=== PATIENT | female | born 1940 | race Caucasian/White ===

== ENCOUNTER → 2021-01-01 13:32 | Outpatient (BNVA) | payer MEDICARE, MEDICAID, SELFPAY | PROVIDERS: Family Provider Family Medicine; Visit Provider Nurse Practitioner Family | DX: I10 Essential (primary) hypertension (principal); F41.9 Anxiety disorder, unspecified; K21.9 Gastro-esophageal reflux disease without esophagitis; Z76.89 Persons encountering health services in other specified circumstances | CPT/HCPCS: 80053; 80061; 84443; 85025 ==

== ENCOUNTER 2021-07-25 19:50 | Emergency (ER) | payer OTHER, MEDICARE, MEDICAID, SELFPAY ==
[2021-07-25 19:57] VITALS: BP 207/87; PULSE 75; RESP 16; TEMP 36.6; O2SAT 94; BMI 24.0
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
[2021-07-25] MEDS: enalaprilat 1.25 mg/mL Inj IVP (20:18)
[2021-07-25] MEDS: LORazepam 2 mg/mL INJ 1 mL 0.5 MG IVP (20:20)
[2021-07-25 20:31] VITALS: BP 168/90
[2021-07-25] MEDS: tetanus-diphtheria tox (adult) 0.5 mL SDV IM (20:41)
[2021-07-25 20:50] VITALS: BP 169/72; PULSE 69; RESP 16; O2SAT 95
--- NOTE | 2021-07-25 20:51 | PC.NURSE ---
wound to left forearm cleansed with normal saline, 4x4s used to dry area. steri strips used to close wound and edges approximated well. mild oozing noted at sites.
[2021-07-25 22:12] VITALS: BP 138/76; PULSE 68; RESP 16; O2SAT 98
== END 2021-07-25 22:25 | disposition home or self-care (01) ==
PROVIDERS: Emergency Provider Emergency Medicine
DX: S50.11XA Contusion of right forearm, initial encounter (principal); S50.811A Abrasion of right forearm, initial encounter; S30.811A Abrasion of abdominal wall, initial encounter; I10 Essential (primary) hypertension; V89.2XXA Person injured in unspecified motor-vehicle accident, traffic, initial encounter; Z23 Encounter for immunization
CPT/HCPCS: 70450; 72125; 73090; 90471; 90714; 96374; 96375; 99284; J2060; J3490

== ENCOUNTER → 2021-09-03 09:30 | Outpatient (BNVA) | payer MEDICARE, MEDICAID, SELFPAY | PROVIDERS: PCP Nurse Practitioner Family; Visit Provider Nurse Practitioner Family | DX: I10 Essential (primary) hypertension (principal) | CPT/HCPCS: 80053; 80061; 84443; 85025 ==

== ENCOUNTER → 2021-12-07 11:39 | Outpatient (BNVA) | payer MEDICARE, MEDICAID, SELFPAY | PROVIDERS: PCP Nurse Practitioner Family; Visit Provider Nurse Practitioner Family | DX: R50.9 Fever, unspecified (principal); R05.9 Cough, unspecified; Z20.822 Contact with and (suspected) exposure to COVID-19 | CPT/HCPCS: 71046; 80053; 85025; 85379; 86140; 87635 ==

== ENCOUNTER → 2021-12-14 11:13 | Outpatient (BNVA) | payer MEDICARE, MEDICAID, SELFPAY | PROVIDERS: PCP Nurse Practitioner Family; Visit Provider Nurse Practitioner Family | DX: R79.82 Elevated C-reactive protein (CRP) (principal); R71.8 Other abnormality of red blood cells; E87.6 Hypokalemia; R79.89 Other specified abnormal findings of blood chemistry; J18.9 Pneumonia, unspecified organism | CPT/HCPCS: 80053; 82607; 85379; 86140 ==

== ENCOUNTER 2021-12-24 12:31 | Outpatient (CLI) | payer MEDICARE, MEDICAID, SELFPAY ==
--- NOTE | 2021-12-24 12:54 | CT_ITS ---
WS: [id number] CTA OF THE CHEST WITH PULMONARY EMBOLISM PROTOCOL TECHNIQUE: High-resolution contrast enhanced CTA of the chest with coronal and sagittal reformatted i mages with pulmonary embolism protocol. MIP images are also reviewed. CLINICAL INFORMATION: J18.9 - Pneumonia, unspecified organism /?PE COMPARISON: None. DLP: 485.[address] scans at [facility] use at least one of these dose optimization techniques: automated e xposure control; mA and/or kV adjustment per patient size (includes targeted exams where dose is matc hed to clinical indication); or iterative reconstruction. FINDINGS: Aneurysmal ascending thoracic aorta measuring 5.9 cm increased from 2018 where it measured approximat antwan 4.9 cm. Proximal main pulmonary arteries are normal. Normal segmental and subsegmental pulmonary arteries. No evidence of pulmonary embolus. No mediastinal or hilar lymphadenopathy. No axillary lymphadenopathy. Moderate chronic emphysematous changes. Bibasilar atelectasis. Slight hazy atelectasis in the lung bases. Fibrotic appearing opacity in the lingula. Cardiomegaly. Ectatic aortic arch. Normal caliber descending thoracic aorta. Partially visualized RIGHT renal peripelvic cyst similar to the prior examinations. Adrenal glands ar e normal. Fatty atrophy of the pancreas. Small esophageal hiatal hernia. Mild hepatomegaly. Cholelith iasis. CT/CT angio chest PE protcl [id number] IMPRESSION: 1. Proximal main pulmonary arteries are normal. No evidence of pulmonary embol us. 2. Ectatic ascending thoracic aorta measuring 5.9 cm compared to 4.9 cm previo us. 3. Moderate chronic emphysematous changes. Bibasilar atelectasis. Fibrotic corona earing opacity in the lingula. 4. No pleural fluid. 5. No mediastinal or hilar lymphadenopathy. 6. Cholelithiasis. 7. Small esophageal hiatal hernia.
== END 2021-12-24 12:32 | disposition home or self-care (01) ==
LOC: RAD 12:35
PROVIDERS: PCP Nurse Practitioner Family; Visit Provider Nurse Practitioner Family
DX: J18.9 Pneumonia, unspecified organism (principal); R05.9 Cough, unspecified; R79.89 Other specified abnormal findings of blood chemistry; K44.9 Diaphragmatic hernia without obstruction or gangrene; K80.20 Calculus of gallbladder without cholecystitis without obstruction; I77.810 Thoracic aortic ectasia
CPT/HCPCS: 71275; Q9967

== ENCOUNTER → 2022-01-07 10:15 | Outpatient (BNVA) | payer MEDICARE, MEDICAID, SELFPAY | PROVIDERS: PCP Nurse Practitioner Family; Visit Provider Thoracic Surgery (Cardiothoracic Vascular Surgery) | DX: I71.2 Thoracic aortic aneurysm, without rupture (principal) ==

== ENCOUNTER → 2022-06-17 15:11 | Outpatient (BNVA) | payer MEDICARE, MEDICAID, SELFPAY | PROVIDERS: PCP Nurse Practitioner Family; Visit Provider Nurse Practitioner Family | DX: R19.7 Diarrhea, unspecified (principal); I10 Essential (primary) hypertension | CPT/HCPCS: 80053; 80061; 84443; 85025 ==

== ENCOUNTER → 2022-06-28 11:31 | Outpatient (BNVA) | payer MEDICARE, MEDICAID, SELFPAY | PROVIDERS: PCP Nurse Practitioner Family; Visit Provider Nurse Practitioner Family | DX: R19.7 Diarrhea, unspecified (principal) | CPT/HCPCS: 87177; 87209; 87506 ==

== ENCOUNTER 2022-06-29 03:35 | Emergency (ER) | payer MEDICARE, MEDICAID, SELFPAY ==
[2022-06-29 03:39] VITALS: BMI 24.0
[2022-06-29 03:42] VITALS: BP 111/57; PULSE 76; RESP 16; TEMP 36.9; O2SAT 95
--- NOTE | 2022-06-29 04:02 | XRR_ITS ---
PROCEDURE INFORMATION: Exam: XR Chest Exam date and time: 06/29/2022 4:08 AM Age: 81 years old Clinical indication: Cough TECHNIQUE: Imaging protocol: Radiologic exam of the chest. Views: 1 view. COMPARISON: CR XR chest 2V* [id number] 12/07/2021 11:38 AM FINDINGS: Lungs: Emphysematous change, interstitial prominence, and chronic granulomatous disease. Pleural spaces: No significant pleural effusion. Heart/Mediastinum: Epicardial fat accentuates the cardiac silhouette. Vasculature: Ectasia of the thoracic aorta. Bones/joints: Osteopenia and degenerative change. XR/XR chest 1V portable [id number] IMPRESSION: Emphysematous change, interstitial prominence, and chronic granulomatous disease.
--- NOTE | 2022-06-29 04:04 | W.ED.GENADLT ---
HPI - General Adult General: Chief complaint: General Medical Stated complaint: Fever\Conjested\Headache\Joint pain Time Seen by Provider: 06/29/22 04:01 Source: patient Mode of arrival: ambulatory Limitations: no limitations History of Present Illness: [id number] female states over the last 2 days she has had headache joint pain muscle aches along with nasal congestion she states that she has been around her daughter and her daughter just tested positive for COVID yesterday she is pretty sure she has COVID as well she is in no distress here denies any breath has had a mild cough denies any vomiting or diarrhea currently Associated symptoms: Reports malaise; Deny chest pain, dyspnea, headache(s), nausea, rash or vomiting Review of Systems Const: Reports: chills, body aches, fatigue and malaise Eyes: Denies: blurry vision or eye discomfort ENMT: Reports: nasal congestion Card: Denies: chest pain Resp: Denies: dyspnea GI: Denies: abdominal pain, nausea, vomiting or diarrhea : Denies: dysuria Musc: Denies: neck pain or back pain Skin/Breast: Denies: rash Neuro: Denies: headache(s) Psych: Denies: depression Lele/Lymph: Denies: easy bruising All/Imm: Denies: urticaria PFSH ED PFSH: Medical History Essential hypertension GERD (gastroesophageal reflux disease) Surgical History Hx of hysterectomy 1969 Social History Smoking and tobacco status: never smoked Second hand smoke exposure: No Smoking risk assessment/counseling performed?: No Alcohol intake: never Desire information about alcohol rehabilitation?: No Counseling given: No Desire information about substance/drug rehabilitation?: No Counseling given: No Adopted: No Caregiver/support person: No Lives independently: Yes Household members: children Housing: House Marital status: / Number of children: 3 service: No Current occupational status: retired History of recent travel: No Physical Exam Const: COMMON NORMALS: no acute distress, patient oriented x3 and healthy appearing HENMT: COMMON NORMALS: normocephalic and atraumatic HEAD & SCALP: normocephalic and atraumatic Eye: COMMON NORMALS: Equal, round and reactive pupils present and EOMs intact bilaterally PUPIL: Yes Equal, round and reactive pupils present Neck/C-Spine: COMMON NORMALS: full ROM and supple Chest: COMMONS NORMALS: normal inspection of the chest and normal palpation of entire chest wall Resp: COMMON NORMALS: normal respiratory effort, No retractions, No use of accessory muscles and clear to auscultation bilaterally AUSCULTATION: clear to auscultation bilaterally Cardio: COMMON NORMALS: regular rate, regular rhythm and No murmurs present (Cardio) RATE: regular rate RHYTHM: regular rhythm GI: COMMON NORMALS: Normal to inspection, nondistended, normoactive bowel sounds present, Soft to palpation, non-tender and no masses PALPATION: Yes Soft to palpation Extremity: COMMON NORMALS: normal to inspection and full ROM Neuro: COMMON NORMALS: patient oriented x3, moves all extremities and no focal motor deficits Psych: COMMON NORMALS: mental status grossly normal, Normal thought process present and cooperative THOUGHT PROCESS: Normal thought process present Skin: COMMON NORMALS: no rashes or lesions noted and no wounds GENERAL SKIN EXAM: no rashes or lesions noted Course Vital Signs: Vital signs: Vital Signs Temperature 98.5 F 06/29/22 03:42 Pulse Rate 76 06/29/22 03:42 Respiratory Rate 16 06/29/22 03:42 Blood Pressure 111/57 06/29/22 03:42 Pulse Oximetry 95 06/29/22 03:42 Oxygen Delivery Me thod 06/29/22 03:42 MDM - General Adult Medical Decision Making Patient presents here with COVID she is well-appearing here in no distress she is stable for discharge she is to follow-up with her PCP and return if worsening she understands agrees to plan. Lab Data Laboratory Results SARS-CoV-2 Ag (Rapid) Positive (Negative) H 06/29/22 03:53 Discharge Plan Discharge Patient Disposition: Home Clinical Impression: COVID-19 Condition: Stable Prescriptions: No Action cholestyramine (with sugar) [Questran] 4 gram powder 4 g PO BID Qty: 378 0RF Rx Instructions: administer w/meal; avoid other meds within 1hr before or 4-6hr after dose omeprazole 20 mg capsule,delayed release(DR/EC) 20 mg PO DAILY 90 Days Qty: 90 1RF metoprolol succinate 25 mg tablet extended release 24 hr 25 mg PO DAILY 90 Days Qty: 90 1RF losartan 25 mg tablet 25 mg PO DAILY 90 Days Qty: 90 1RF citalopram 40 mg tablet 40 mg PO DAILY 90 Days Qty: 90 1RF amlodipine 10 mg tablet 10 mg PO DAILY 90 Days Qty: 90 1RF (DME) compressor, for nebulizer Device See Rx Instructions .Route Qty: 1 0RF Rx Instructions: As directed (DME) nebulizer accessories Kit See Rx Instructions .Route Qty: 1 0RF Rx Instructions: As directed albuterol sulfate 2.5 mg /3 mL (0.083 %) solution for nebulization 2.5 mg inhalation QID PRN (Reason: shortness of breath or wheezing) Qty: 75 0RF mirtazapine 30 mg tablet 30 mg PO DAILY Qty: 90 1RF dexamethasone 6 mg tablet 6 mg PO DAILY Qty: 7 0RF Discharge Orders: Discharge ED (Routine); Ordered 06/29/22 Ordered By: Lolita Altman Referrals: Ines Cotton FNP-C [Primary Care Provider] - 1-3 days Discharge Diet: Advance as tolerated Discharge Activity: Resume usual activity Patient Instructions: COVID-19 (Coronavirus Disease 2019) (ED) Coding Level of Care Code ED Commissions Analyst for [facility] Exam Comprehensive
[2022-06-29] MEDS: ketorolac 30 mg/mL INJ 15 MG IVP (04:21)
[2022-06-29] MEDS: dexamethasone 10 mg/mL INJ 6 MG IVP (04:21)
[2022-06-29] MEDS: sodium chloride 0.9% 500 ML 999 ML IV (04:21)
[2022-06-29 04:51] LABS: SARS Covid-2 Antigen Positive (Negative)
[2022-06-29 05:20] VITALS: BP 114/71; PULSE 77; RESP 18; TEMP 37.1; O2SAT 98
== END 2022-06-29 05:22 | disposition home or self-care (01) ==
PROVIDERS: Emergency Provider Emergency Medicine; PCP Nurse Practitioner Family
DX: U07.1 COVID-19 (principal); I10 Essential (primary) hypertension
CPT/HCPCS: 71045; 87426; 96361; 96374; 96375; 99284; J1100; J1885; J7040

== ENCOUNTER 2022-11-29 13:04 | Outpatient (CLI) | payer MEDICARE, MEDICAID, SELFPAY ==
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
== END 2022-11-29 13:05 | disposition home or self-care (01) ==
LOC: RAD 13:04
PROVIDERS: PCP Family Medicine; Visit Provider Family Medicine
DX: Z78.0 Asymptomatic menopausal state (principal); M85.80 Other specified disorders of bone density and structure, unspecified site
CPT/HCPCS: 77080

== ENCOUNTER 2022-12-07 20:22 | Emergency (ER) | payer MEDICARE, MEDICAID, SELFPAY ==
[2022-12-07 20:24] VITALS: BP 90/68; PULSE 66; RESP 16; TEMP 36.4; O2SAT 98; BMI 24.0
[2022-12-07 20:42] VITALS: BP 61/39; PULSE 71; RESP 22; O2SAT 100
[2022-12-07] MEDS: sodium chloride 0.9% 1,000 ML 999 ML IV ×2 (21:10→23:05)
--- NOTE | 2022-12-07 21:32 | W.ED.NAVMDI ---
Documented by User: Sonia Menjivar MD 12/07/22 21:35 HPI - Nausea/Vomiting/Diarrhea General: Chief complaint: Nausea/Vomiting/Diarrhea Stated complaint: N/V, headache Time Seen by Provider: 12/07/22 20:29 History of Present Illness: This 82-year-old lady presents to the ER with nausea, vomiting and diarrhea that started earlier today. She also complains of runny nose and pain on the left side of the face which she believes is due to her sinuses. Both started today. She has vomited 4 times and had 3 bowel movements so far. The bowel movements are watery and contains no blood. Vomitus also does not contain blood. Patient denies fever, chest pain or shortness of breath. She has no abdominal pain. She denies any sick contacts. Associated nausea: Yes Associated symtoms: Reports nausea Review of Systems General: Reports: 10 or more systems reviewed and unremarkable except in HPI and below ENMT: Reports: other (Nasal congestion and runny nose) GI: Reports: nausea, vomiting and diarrhea PFSH ED PFSH: Medical History Essential hypertension GERD (gastroesophageal reflux disease) Surgical History Hx of hysterectomy 1970 Social History Smoking and tobacco status: never smoked Second hand smoke exposure: No Smoking risk assessment/counseling performed?: No Alcohol intake: never Desire information about alcohol rehabilitation?: No Counseling given: No Desire information about substance/drug rehabilitation?: No Counseling given: No Adopted: No Caregiver/support person: No Lives independently: Yes Household members: children Housing: House Marital status: / Number of children: 3 service: No Current occupational status: retired Physical Exam Const: COMMON NORMALS: no acute distress, patient oriented x3, no limitations and alert HENMT: COMMON NORMALS: normocephalic HEAD & SCALP: normocephalic Chest: COMMONS NORMALS: normal inspection of the chest Resp: COMMON NORMALS: normal respiratory effort, No retractions, No use of accessory muscles and clear to auscultation bilaterally AUSCULTATION: clear to auscultation bilaterally Cardio: COMMON NORMALS: regular rate, regular rhythm and No murmurs present (Cardio) RATE: regular rate RHYTHM: regular rhythm GI: COMMON NORMALS: Normal to inspection, nondistended, normoactive bowel sounds present and non-tender OTHER: Soft abdomen, not distended, normal bowel sounds. No tenderness. : COMMON NORMALS: Yes no CVA tenderness BLADDER/KIDNEY EXAM: Yes no CVA tenderness Back/Pelvis: COMMON NORMALS: no CVA tenderness and no thoracic nor lumbar tenderness Extremity: GENERAL: Yes normal exam except as noted Neuro: COMMON NORMALS: patient oriented x3 and no focal motor deficits SENSORIUM/ORIENTATION: Yes alert Course Vital Signs: Vital signs: Vital Signs Temperature 97.6 F 12/07/22 20:24 Pulse Rate 89 12/08/22 00:15 Respiratory Rate 21 H 12/08/22 00:15 Blood Pressure 154/91 12/08/22 00:15 Pulse Oximetry 92 12/08/22 00:15 Oxygen Delivery Me thod 12/07/22 20:24 Oxygen Flow Rate 2 12/07/22 20:24 MDM - Nausea/Vomiting/Diarrhea Lab Data 12/07/22 21:20 12/07/22 21:20 Radiology Impressions Chest X-Ray 12/07/22 22:30 IMPRESSION: No acute findings. Abdomen/Pelvis CT 12/07/22 22:48 IMPRESSION: 1. Multiple prominent fluid-filled loops of small bowel may reflect an enteritis in the appropriate clinical setting, negative for bowel dilation. 2. Pericardial effusion incompletely image measuring up to 14.4 mm in thickness, CT chest could further evaluate this. 3. Bibasilar atelectasis versus infiltrate. 4. Mild periportal edema likely related hydration status. 5. Cholelithiasis with gallbladder distension, ultrasound could further evaluate this. 6. Left adnexal 2.8 cm simple cyst. 7. Small amount air in the urinary bladder may be iatrogenic. 8. Emphysematous changes. 9. Left hepatic lobe cyst. 10. Bilateral renal cysts, negative for follow up. 11. Right inguinal fat containing hernia without bowel or inflammation. 12. Several prominent upper abdominal lymph nodes in the region of the celiac artery axis measuring 10 mm, nonspecific. COMMENTS: Consistent with the [employer]'s Incidental Findings Committee white paper (J Am Shiva Radiol 2018): Any incidental renal lesion less than 1 cm or classified as too small to characterize, or any incidental cystic renal lesion characterized as simple-appearing, is likely benign. No follow-up imaging is recommended for these lesions per consensus recommendations based on imaging criteria. Laboratory Results WBC 16.9 10^3/uL (4.0-10.0) H 12/07/22 21:20 RBC 3.99 10^6/uL (4.1-5.3) L 12/07/22 21:20 Hgb 12.2 g/dL (11.5-15.3) 12/07/22 21:20 Hct 40.5 % (37.0-47.0) 12/07/22 21: MCV 101.5 fl (81-99) H 12/07/22 21: MCH 30.6 pg (28.0-34.0) 12/07/22 21: MCHC 30.1 g/dL (30.0-36.0) 12/07/22 21: RDW 12.9 % (12.1-15.1) 12/07/22: Plt Count 192 10^3/cmm (130-400) 12/07/22 21:20 MPV 9.7 fL (7.4-10.4) 12/07/22 21: Neut % (Auto) 74.4 % 12/07/22 21: Lymph % (Auto) 15.0 % 12/07/22 21:20 Bennett % (Auto) 9.1 % 12/07/22 21:20 Eos % (Auto) 0.2 % 12/07/22: Baso % (Auto) 0.5 % 12/07/22: Neut # (Auto) 12.59 10^3/uL (1.8-7.7) H 12/07/22 21:20 Lymph # (Auto) 2.5 10^3/uL (0.8-4.8) 12/07/22 21:20 Bennett # (Auto) 1.5 10^3/uL (0.2-0.9) H 12/07/22 21:20 Eos # (Auto) 0.0 10^3/uL (0.0-0.8) 12/07/22 21: Baso # (Auto) 0.1 10^3/uL (0.0-0.1) 12/07/22 21:20 Nucleated RBC % (auto) 0 % 12/07/22 21:20 Nucleated RBCs # 0.0 /100WBC 12/07/22 21:20 Sodium 136 mmol/L (136-145) 12/07/22 21:20 Potassium 4.6 mmol/L (3.5-5.1) 12/07/22 21:20 Chloride 99 mmol/L (98-107) 12/07/22 21:20 Carbon Dioxide 21 mmol/L (22-29) L 12/07/22 21:20 Anion Gap 20.6 (5-19) H 12/07/22 21:20 BUN 17 mg/dL (8-23) 12/07/22 21:20 Creatinine 1.5 mg/dL (0.5-0.9) H 12/07/22 21:20 GFR Calculation Not Reportable 12/07/22 21:20 Glucose 215 mg/dL (65-115) H 12/07/22 21:20 Calculated Osmolality 290 mOsm/kg (285-295) 12/07/22 21:20 Lactic Acid 5.2 mmol/L (0.5-2.2) H* 12/07/22 21:20 Calcium 8.6 mg/dL (8.5-10.5) 12/07/22 21:20 Total Bilirubin 0.5 mg/dL (0.15-1.2) 12/07/22 21:20 AST 21 U/L (0-32) 12/07/22 21:20 ALT 7 U/L (0-33) 12/07/22 21:20 Alkaline Phosphatase 92 U/L (35-105) 12/07/22 21:20 Total Protein 7.0 g/dL (6.6-8.7) 12/07/22 21:20 Albumin 3.5 g/dL (3.5-5.2) 12/07/22 21:20 Globulin 3.5 g/dL (1.3-4.6) 12/07/22 21:20 Lipase 22 U/L (13-60) 12/07/22 21:20 Urine Color Yellow (Yellow) 12/07/22 22:33 Urine Appearance Sl hazy (CLEAR) A 12/07/22 22:33 Urine pH 5 (5-7) 12/07/22 22:33 Ur Specific Artemus 1.020 (1.005-1.030) 12/07/22 22:33 Urine Protein Trace (Negative) 12/07/22 22:33 Urine Glucose (UA) Norm (Normal) 12/07/22 22:33 Urine Ketones Negative (Negative) 12/07/22 22:33 Urine Blood Neg (Negative) 12/07/22 22:33 Urine Nitrate Positive (Negative) H 12/07/22 22:33 Urine Bilirubin Neg (Negative) 12/07/22 22:33 Urine Urobilinogen Norm mg/dL (Negative) 12/07/22 22:33 Ur Leukocyte Esterase 2+ (Negative) H 12/07/22 22:33 Urine RBC 0-4 /hpf (0-2) H 12/07/22 22:33 Urine WBC >100 /hpf (0-5) H 12/07/22 22:33 Ur Squamous Epith Cells 0-4 /hpf (0-5) H 12/07/22 22:33 Amorphous Sediment Not Reportable 12/07/22 22:33 Urine Bacteria 1+ /hpf (NONE) H 12/07/22 22:33 Influenza Type A Ag negative (Negative) 12/07/22 21:42 Influenza Type B Ag negative (Negative) 12/07/22 21:42 SARS-CoV-2 Ag (Rapid) negative (Negative) 12/07/22 21:42 Discharge Plan Discharge Patient Disposition: Clinical Impression: Cardiac arrest Coding Level of Care Code ED [employer] for Chg Fwd Documented by User: Lolita Altman MD 12/08/22 01:15 HPI - Nausea/Vomiting/Diarrhea General: Chief complaint: Nausea/Vomiting/Diarrhea Stated complaint: N/V, headache Time Seen by Provider: 12/07/22 20:29 PFSH ED PFSH: Medical History Essential hypertension GERD (gastroesophageal reflux disease) Surgical History Hx of hysterectomy 1970 Social History Smoking and tobacco status: never smoked Second hand smoke exposure: No Smoking risk assessment/counseling performed?: No Alcohol intake: never Desire information about alcohol rehabilitation?: No Counseling given: No Desire information about substance/drug rehabilitation?: No Counseling given: No Adopted: No Caregiver/support person: No Lives independently: Yes Household members: children Housing: House Marital status: / Number of children: 3 service: No Current occupational status: retired Course Vital Signs: Vital signs: Vital Signs Temperature 97.6 F 12/07/22 20:24 Pulse Rate 89 12/08/22 00:15 Respiratory Rate 21 H 12/08/22 00:15 Blood Pressure 154/91 12/08/22 00:15 Pulse Oximetry 92 12/08/22 00:15 Oxygen Delivery Me thod 12/07/22 20:24 Oxygen Flow Rate 2 12/07/22 20:24 MDM - Nausea/Vomiting/Diarrhea Medical Decision Making I took patient over from previous physician patient has pending a CT abdomen they did notice a pericardial effusion when spoke she does have a history of thoracic aneurysm is ordering an echo patient then shortly thereafter became unresponsive and came to the room patient pulse ox dropped with weak pulses I asked daughter at bedside if patient wanted to be resuscitated or intubated she said no I did a bedside ultrasound that did show a pericardial effusion with minimal cardiac activity with likely tamponade I asked her if she would like me to try to perform a pericardiocentesis I did was able to drain about 20 cc of blood off with the pericardiocentesis but had no return of cardiac activity with another ultrasound and no cardiac activity was noted time of was called at 1:10 AM Patient had a known thoracic aneurysm likely this caused her sudden tamponade and cardiac arrest Lab Data 12/07/22 21:20 12/07/22 21:20 Radiology Impressions Chest X-Ray 12/07/22 22:30 IMPRESSION: No acute findings. Abdomen/Pelvis CT 12/07/22 22:48 IMPRESSION: 1. Multiple prominent fluid-filled loops of small bowel may reflect an enteritis in the appropriate clinical setting, negative for bowel dilation. 2. Pericardial effusion incompletely image measuring up to 14.4 mm in thickness, CT chest could further evaluate this. 3. Bibasilar atelectasis versus infiltrate. 4. Mild periportal edema likely related hydration status. 5. Cholelithiasis with gallbladder distension, ultrasound could further evaluate this. 6. Left adnexal 2.8 cm simple cyst. 7. Small amount air in the urinary bladder may be iatrogenic. 8. Emphysematous changes. 9. Left hepatic lobe cyst. 10. Bilateral renal cysts, negative for follow up. 11. Right inguinal fat containing hernia without bowel or inflammation. 12. Several prominent upper abdominal lymph nodes in the region of the celiac artery axis measuring 10 mm, nonspecific. COMMENTS: Consistent with the [place] [employer]'s Incidental Findings Committee white paper (J Am Shiva Radiol 2018): Any incidental renal lesion less than 1 cm or classified as too small to characterize, or any incidental cystic renal lesion characterized as simple-appearing, is likely benign. No follow-up imaging is recommended for these lesions per consensus recommendations based on imaging criteria. Laboratory Results WBC 16.9 10^3/uL (4.0-10.0) H 12/07/22 21:20 RBC 3.99 10^6/uL (4.1-5.3) L 12/07/22 21:20 Hgb 12.2 g/dL (11.5-15.3) 12/07/22 21:20 Hct 40.5 % (37.0-47.0) 12/07/22 21:20 MCV 101.5 fl (81-99) H 12/07/22 21:20 MCH 30.6 pg (28.0-34.0) 12/07/22 21:20 MCHC 30.1 g/dL (30.0-36.0) 12/07/22 21:20 RDW 12.9 % (12.1-15.1) 12/07/22: Plt Count 192 10^3/cmm (130-400) 12/07/22 21:20 MPV 9.7 fL (7.4-10.4) 12/07/22 21:20 Neut % (Auto) 74.4 % 12/07/22 21: Lymph % (Auto) 15.0 % 12/07/22 21:20 Bennett % (Auto) 9.1 % 12/07/22 21:20 Eos % (Auto) 0.2 % 12/07/22 21:20 Baso % (Auto) 0.5 % 12/07/22 21:20 Neut # (Auto) 12.59 10^3/uL (1.8-7.7) H 12/07/22 21:20 Lymph # (Auto) 2.5 10^3/uL (0.8-4.8) 12/07/22 21:20 Bennett # (Auto) 1.5 10^3/uL (0.2-0.9) H 12/07/22 21:20 Eos # (Auto) 0.0 10^3/uL (0.0-0.8) 12/07/22 21:20 Baso # (Auto) 0.1 10^3/uL (0.0-0.1) 12/07/22 21:20 Nucleated RBC % (auto) 0 % 12/07/22 21:20 Nucleated RBCs # 0.0 /100WBC 12/07/22 21:20 Sodium 136 mmol/L (136-145) 12/07/22 21:20 Potassium 4.6 mmol/L (3.5-5.1) 12/07/22 21:20 Chloride 99 mmol/L (98-107) 12/07/22 21:20 Carbon Dioxide 21 mmol/L (22-29) L 12/07/22 21:20 Anion Gap 20.6 (5-19) H 12/07/22 21:20 BUN 17 mg/dL (8-23) 12/07/22 21:20 Creatinine 1.5 mg/dL (0.5-0.9) H 12/07/22 21:20 GFR Calculation Not Reportable 12/07/22 21:20 Glucose 215 mg/dL (65-115) H 12/07/22 21:20 Calculated Osmolality 290 mOsm/kg (285-295) 12/07/22 21:20 Lactic Acid 5.2 mmol/L (0.5-2.2) H* 12/07/22 21:20 Calcium 8.6 mg/dL (8.5-10.5) 12/07/22 21:20 Total Bilirubin 0.5 mg/dL (0.15-1.2) 12/07/22 21:20 AST 21 U/L (0-32) 12/07/22 21:20 ALT 7 U/L (0-33) 12/07/22 21:20 Alkaline Phosphatase 92 U/L (35-105) 12/07/22 21:20 Total Protein 7.0 g/dL (6.6-8.7) 12/07/22 21:20 Albumin 3.5 g/dL (3.5-5.2) 12/07/22 21:20 Globulin 3.5 g/dL (1.3-4.6) 12/07/22 21:20 Lipase 22 U/L (13-60) 12/07/22 21:20 Urine Color Yellow (Yellow) 12/07/22 22:33 Urine Appearance Sl hazy (CLEAR) A 12/07/22 22:33 Urine pH 5 (5-7) 12/07/22 22:33 Ur Specific Artemus 1.020 (1.005-1.030) 12/07/22 22:33 Urine Protein Trace (Negative) 12/07/22 22:33 Urine Glucose (UA) Norm (Normal) 12/07/22 22:33 Urine Ketones Negative (Negative) 12/07/22 22:33 Urine Blood Neg (Negative) 12/07/22 22:33 Urine Nitrate Positive (Negative) H 12/07/22 22:33 Urine Bilirubin Neg (Negative) 12/07/22 22:33 Urine Urobilinogen Norm mg/dL (Negative) 12/07/22 22:33 Ur Leukocyte Esterase 2+ (Negative) H 12/07/22 22:33 Urine RBC 0-4 /hpf (0-2) H 12/07/22 22:33 Urine WBC >100 /hpf (0-5) H 12/07/22 22:33 Ur Squamous Epith Cells 0-4 /hpf (0-5) H 12/07/22 22:33 Amorphous Sediment Not Reportable 12/07/22 22:33 Urine Bacteria 1+ /hpf (NONE) H 12/07/22 22:33 Influenza Type A Ag negative (Negative) 12/07/22 21:42 Influenza Type B Ag negative (Negative) 12/07/22 21:42 SARS-CoV-2 Ag (Rapid) negative (Negative) 12/07/22 21:42 Critical Care Time Critical Care Time: Critical Care Time: Yes Total Critical Care Time: 55 Attestation: The high probability of a clinically significant, sudden or life threatening deterioration of the patient's cv system(s) required my full and direct attention, intervention and personal management. The critical care time is as shown. This time is in addition to time spent performing any reported procedures but includes the following: [x] Data and vital sign review and interpretation [x] Patient assessment, examination and intervention [x] Documentation [x] Medication orders and management Discharge Plan Discharge Patient Disposition: Clinical Impression: Cardiac arrest Coding Level of Care Code ED [employer] for Emory Macedo
[2022-12-07 21:34] LABS: Basophils # 0.1 10^3/uL (0.0-0.1); Basophils % 0.5 %; Eosinophils % 0.2 %; Hematocrit 40.5 % (37.0-47.0); Hemoglobin 12.2 g/dL (11.5-15.3); Lymphocytes # 2.5 10^3/uL (0.8-4.8); Mean Corpuscular HGB Conc 30.1 g/dL (30.0-36.0); Mean Corpuscular Hemoglobin 30.6 pg (28.0-34.0); Mean Corpuscular Volume 101.5 fl (81-99); Mean Platelet Volume 9.7 fL (7.4-10.4); Monocytes # 1.5 10^3/uL (0.2-0.9); Monocytes % 9.1 %; Neutrophils # 12.59 10^3/uL (1.8-7.7); Neutrophils % 74.4 %; Nucleated Red Blood Cells % 0 %; Platelet Count 192 10^3/cmm (130-400); Red Blood Count 3.99 10^6/uL (4.1-5.3); Red Cell Distribution Width 12.9 % (12.1-15.1); White Blood Count 16.9 10^3/uL (4.0-10.0)
[2022-12-07] MEDS: ondansetron 2 mg/ML SDV 2 mL 4 MG IVP (21:36)
[2022-12-07 21:37] VITALS: BP 95/56; PULSE 79; RESP 22
[2022-12-07 21:47] LABS: Alanine Aminotransferase 7 U/L (0-33); Albumin Level 3.5 g/dL (3.5-5.2); Alkaline Phosphatase 92 U/L (35-105); Anion Gap 20.6 (5-19); Aspartate Amino Transferase 21 U/L (0-32); Blood Urea Nitrogen 17 mg/dL (8-23); Calcium 8.6 mg/dL (8.5-10.5); Carbon Dioxide 21 mmol/L (22-29); Chloride 99 mmol/L (98-107); Globulin 3.5 g/dL (1.3-4.6); Glucose 215 mg/dL (65-115); Lipase 22 U/L (13-60); Osmolality Calculated 290 mOsm/kg (285-295); Potassium 4.6 mmol/L (3.5-5.1); Sodium 136 mmol/L (136-145); Total Bilirubin 0.5 mg/dL (0.15-1.2)
[2022-12-07 22:19] LABS: Influenza A by IFA negative (Negative); Influenza B by IFA negative (Negative)
[2022-12-07 22:21] LABS: SARS Covid-2 Antigen negative (Negative)
--- NOTE | 2022-12-07 22:30 | XRR_ITS ---
PROCEDURE INFORMATION: Exam: XR Chest Exam date and time: 12/07/2022 10:53 PM Age: 82 years old Clinical indication: Other: Hypotension; Patient HX: Cervical CA TECHNIQUE: Imaging protocol: Radiologic exam of the chest. Views: 1 view. COMPARISON: CR (CHEST, ) 06/29/2022 4:08 AM FINDINGS: Lungs: Right upper lobe calcified granuloma. No consolidation. Pleural spaces: Unremarkable. No pleural effusion. No pneumothorax. Heart/Mediastinum: Unremarkable. No cardiomegaly. Bones/joints: Unremarkable. XR/XR chest 1V portable [id number] IMPRESSION: No acute findings.
[2022-12-07 22:35] VITALS: BP 110/69; PULSE 75; RESP 18; O2SAT 97
--- NOTE | 2022-12-07 22:48 | CTR_ITS ---
PROCEDURE INFORMATION: Exam: CT Abdomen And Pelvis With Contrast Exam date and time: 12/07/2022 11:26 PM Age: 82 years old Clinical indication: Nausea and vomiting; Prior surgery; Surgery type: Hysterectomy; Patient HX: C/O n/v/d. Septic with elevated lactic and hypotensive. ; Additional info: Vomiting, diarrhea, hypotension TECHNIQUE: Imaging protocol: Computed tomography of the abdomen and pelvis with contrast. Radiation optimization: All CT scans at this facility use at least one of these dose optimization techniques: automated exposure control; mA and/or kV adjustment per patient size (includes targeted exams where dose is matched to clinical indication); or iterative reconstruction. Contrast material: OMNI 350; Contrast volume: 75 ml; Contrast route: INTRAVENOUS (IV); REPORTING DATA: Count of CT and Cardiac NM exams in prior 12 months: This patient has received [address] and 0 known cardiac nuclear medicine studies in the 12 months prior to the current study. COMPARISON: CR XR hip LT 2-3V wo/w pel* [id number] 05/07/2016 3:14 PM RADIATION DOSE METRICS: Total DLP (mGy-cm): 499.5 FINDINGS: Lungs: Emphysematous changes. Bibasilar atelectasis versus infiltrate. Heart: Pericardial effusion incompletely image measuring up to 14.4 mm in thickness, CT chest could further evaluate this. Liver: Mild periportal edema likely related hydration status. Left hepatic lobe cyst. Gallbladder and bile ducts: Cholelithiasis with gallbladder distension, ultrasound could further evaluate this. Pancreas: Normal. No ductal dilation. Spleen: Normal. No splenomegaly. Adrenal glands: Normal. No mass. Kidneys and ureters: Bilateral renal cysts, negative for follow up. Stomach and bowel: Multiple prominent fluid-filled loops of small bowel may reflect an enteritis in the appropriate clinical setting, negative for bowel dilation. Appendix: No evidence of appendicitis. Intraperitoneal space: Unremarkable. No free air. No significant fluid collection. Vasculature: Unremarkable. No abdominal aortic aneurysm. Lymph nodes: Several prominent upper abdominal lymph nodes in the region of the celiac artery axis measuring 10 mm, nonspecific. Urinary bladder: Small amount air in the urinary bladder may be iatrogenic. Reproductive: Left adnexal 2.8 cm simple cyst. Bones/joints: Unremarkable. No acute fracture. Soft tissues: Right inguinal fat containing hernia without bowel or inflammation. CT/CT abdomen pelvis w con* [id number] IMPRESSION: 1. Multiple prominent fluid-filled loops of small bowel may reflect an enteritis in the appropriate clinical setting, negative for bowel dilation. 2. Pericardial effusion incompletely image measuring up to 14.4 mm in thickness, CT chest could further evaluate this. 3. Bibasilar atelectasis versus infiltrate. 4. Mild periportal edema likely related hydration status. 5. Cholelithiasis with gallbladder distension, ultrasound could further evaluate this. 6. Left adnexal 2.8 cm simple cyst. 7. Small amount air in the urinary bladder may be iatrogenic. 8. Emphysematous changes. 9. Left hepatic lobe cyst. 10. Bilateral renal cysts, negative for follow up. 11. Right inguinal fat containing hernia without bowel or inflammation. 12. Several prominent upper abdominal lymph nodes in the region of the celiac artery axis measuring 10 mm, nonspecific. COMMENTS: Consistent with the [place] [employer]'s Incidental Findings Committee white paper (J Am Shiva Radiol 2018): Any incidental renal lesion less than 1 cm or classified as too small to characterize, or any incidental cystic renal lesion characterized as simple-appearing, is likely benign. No follow-up imaging is recommended for these lesions per consensus recommendations based on imaging criteria.
[2022-12-07 22:52] LABS: Lactic Sepsis W/Reflex 5.2 mmol/L (0.5-2.2)
[2022-12-07 23:00] VITALS: BP 94/64; PULSE 75; RESP 21; O2SAT 95
[2022-12-07 23:01] LABS: Urine Appearance SL Hazy (CLEAR); Urine Color Yellow (Yellow); pH Urine 5 (5-7)
[2022-12-07 23:02] LABS: Bilirubin Urine Neg (Negative); Blood Urine Neg (Negative); Glucose Urine UA Norm (Normal); Ketones Urine Negative (Negative); Nitrate Urine Positive (Negative); Urobilinogen Urine Norm (Negative)
[2022-12-07 23:03] LABS: Add Urine Microscopic? YES; Leukocyte Esterase Urine 2+ (Negative); Protein Urine Trace (Negative)
[2022-12-07 23:14] LABS: Bacteria Urine 1+ /hpf; RBC Urine 0-4 /hpf (0-2); Squamous Epithelial Cell Urine 0-4 /hpf (0-5); WBC Urine >100 /hpf (0-5)
[2022-12-07 23:15] LABS: Add Urine Culture? Yes
[2022-12-07] MEDS: iohexol 350 mg/mL 500 mL Btl (per mL) IV (23:38)
[2022-12-07] MEDS: piperacillin-tazobactam 3.375 GM in sodium chloride 0.9% (plus) 50 ML IV (23:39)
[2022-12-07] MEDS: vancomycin 1,000 MG in sodium chloride 0.9% 250 ML 250 MG IV (23:39)
[2022-12-08] VITALS: BP 119/85; PULSE 74; RESP 24
[2022-12-08 00:15] VITALS: BP 154/91; PULSE 89; RESP 21; O2SAT 92
[2022-12-08] MEDS: ondansetron 2 mg/ML SDV 2 mL 4 MG IVP (00:16)
[2022-12-08 00:22] LABS: Reflex Lactate Order REFLEX LACTIC ORDERD
[2022-12-08 00:47] VITALS: BP 108/84; PULSE 85; RESP 25; O2SAT 94
--- NOTE | 2022-12-08 01:29 | PC.NURSE ---
Pt released by [employer] [place] search optimization analyst Abdoulaye Reynolds. Pt can be released to [facility]/ Home.
--- NOTE | 2022-12-08 01:40 | PC.NURSE ---
Patient at 0110. Patient daughter yelled out into jose, and nurse went into room. Patient was blue. Charge nurse was yelled for. Jaw thrust maneuver used on patient while bagging at 100% O2 performed. Dr Altman and respiratory was called for by extra staff that arrived. Heart rate could not be obtained, pulse could not be found by staff at bedside. Dr Altman and daughter at bedside, daughter said patient wished to be a DNR. Dr Altman stated he could try and drain her pericaridal space and see what outcome would be. Daughter agreed to this. Dr Altman performed procedure and was not succesful, daughter stated to be done. Dr Altman called time of at 0110. Strips were printed, MTS was notified and procedure followed.
[2022-12-08 01:41] LABS: Lactic Acid level (Lactate) 5.7 mmol/L (0.5-2.2)
--- NOTE | 2022-12-08 01:52 | PC.NURSE ---
Mary Ann from [facility] called, states pt is a canidate, and will call her daughter Skyla. Skyla states pt mentioned wanting to be donated to science. Mary Ann from [facility] states she will discuss this with the family.
--- NOTE | 2022-12-08 16:06 | PC.NURSE ---
Received a call from Abdoulaye Reynolds ([employer]) stating this patient is actually a [facility] resident. I called Boone Blackman ([facility] coroner) at 1608pm to let him know we have this [facility] Blackman will be here tomorrow (12-09) to hot die picker the packet on this patient.
== END 2022-12-08 04:03 | disposition expired ==
PROVIDERS: Family Medicine; Emergency Provider Emergency Medicine; PCP Family Medicine
DX: I46.9 Cardiac arrest, cause unspecified (principal); I10 Essential (primary) hypertension; I31.39 Other pericardial effusion (noninflammatory); K80.20 Calculus of gallbladder without cholecystitis without obstruction
CPT/HCPCS: 36415; 71045; 74177; 80053; 81001; 83605; 83690; 85025; 87040; 87086; 87426; 87804; 96365; 96366; 96367; 96375; 96376; 99291; J2405; J2543; J3370; J7030; J7050; Q9967